=== PATIENT | male | born 1985 | race Caucasian/White ===

== ENCOUNTER 2021-12-06 18:31 | Emergency (ER) | payer SELFPAY ==
[2021-12-06] MEDS ORDERED: Diphtheria,Pertussis(Acell),Tetanus Vaccine 0.5 ML Syringe IM ONE (18:54)
== END 2021-12-06 19:48 | disposition home or self-care (01) ==
LOC: JD.ED 18:31
DX: S01.01XA Laceration without foreign body of scalp, initial encounter (principal); F17.210 Nicotine dependence, cigarettes, uncomplicated; Z88.2 Allergy status to sulfonamides; Z86.16 Personal history of COVID-19; Z79.899 Other long term (current) drug therapy; Z23 Encounter for immunization; Y04.8XXA Assault by other bodily force, initial encounter
CPT/HCPCS: 90471; 90715; 99283

== ENCOUNTER 2022-09-12 14:54 | Emergency (ER) | payer MEDICAID | END 2022-09-12 16:25 | disposition home or self-care (01) | LOC: JD.ED 14:54 | DX: J01.00 Acute maxillary sinusitis, unspecified (principal); H10.9 Unspecified conjunctivitis; F17.210 Nicotine dependence, cigarettes, uncomplicated; Z88.2 Allergy status to sulfonamides; Z86.16 Personal history of COVID-19 | CPT/HCPCS: 99282; 99283 ==